=== PATIENT | female | born 1955 | race Hispanic/Latino ===

== ENCOUNTER 2022-02-20 03:42 | Emergency (ER) | payer OTHER ==
[2022-02-20] MEDS ORDERED: SODIUM CHLORIDE 0.9% 1000 ML 1,000 ML IV ONE (04:28)
[2022-02-20 05:01] LABS: Basophils % (Auto) 0.5 % (0.0-1.8); Eosinophils # (Auto) 0.2 K/mm3 (0.0-0.4); Eosinophils % (Auto) 2.2 % (0.0-4.3); Hematocrit 32.9 % (30.3-42.9); Hemoglobin 10.6 gm/dl (10.1-14.3); Lymphocytes # (Auto) 0.9 K/mm3 (1.2-5.4); Lymphocytes % (Auto) 13.6 % (13.4-35.0); Mean Corpuscular HGB Conc 32 % (30-34); Mean Corpuscular Volume 88 fl (79-97); Monocytes # (Auto) 0.5 K/mm3 (0.0-0.8); Monocytes % (Auto) 7.1 % (0.0-7.3); Platelet Count 272 K/mm3 (140-440); Red Blood Count 3.75 M/mm3 (3.65-5.03); Red Cell Distribution Width 13.6 % (13.2-15.2)
--- NOTE | 2022-02-20 05:05 | XRay Report ---
XR chest 1V ap INDICATION / CLINICAL INFORMATION: syncope. COMPARISON: None available. FINDINGS: SUPPORT DEVICES: None. HEART /PULMONARY VASCULATURE: No significant abnormality. LUNGS / PLEURA: No significant pulmonary or pleural abnormality. No pneumothorax. ADDITIONAL FINDINGS: No significant additional findings. IMPRESSION: 1. No acute findings. Signer Name: Constantino Patton MD Signed: 02/20/2022 5:00 AM Workstation Name: [email or web address]
[2022-02-20 05:11] LABS: Bilirubin,Urine NEG (Negative); Blood,Urine SM (Negative); Color,Urine Yellow (Yellow); Mucus,Urine 2+ /HPF; Urobilinogen,Urine < 2.0 mg/dL (<2.0)
[2022-02-20 05:17] LABS: Albumin 3.5 g/dL (3.9-5); Calcium 9.2 mg/dL (8.4-10.2)
[2022-02-20 05:25] VITALS: BP 106/66
--- NOTE | 2022-02-20 05:37 | Emergency Department Report ---
ED General Adult HPI - General Chief complaint: Weakness Stated complaint: DEHYDRATION Time Seen by Provider: 02/20/22 04:24 Source: patient, family, EMS Mode of arrival: Stretcher Limitations: Physical Limitation - History of Present Illness Initial comments: Patient presents with complaints of an episode of loss of consciousness that was witnessed by her daughter, who is at the bedside giving collateral history. Per daughter, it lasted for less than a minute and was without convulsive jerking, bowel/urinary incontinence, tongue or lip biting. Patient denies any dizziness, numbness, weakness, PEÑALOZA, CP, SOB, palpitations before or after the episode. Also denies any vomiting, diarrhea, hematochezia, bloody or black tarry stools, vaginal bleeding. - Related Data Allergies Allergy/AdvReac Type Severity Reaction Status Date / Time codeine Allergy Hives Verified 02/20/22 05:17 ED Review of Systems ROS: Stated complaint: DEHYDRATION Other details as noted in HPI Comment: All other systems reviewed and negative Constitutional: denies: chills, fever ED Past Medical Hx - Past Medical History Previous Medical History?: Yes Hx Hypertension: Yes Hx CVA: Yes - Surgical History Past Surgical History?: Yes Additional Surgical History: Hysterectomy - Social History Smoking Status: Never Smoker Substance Use Type: None ED Physical Exam - General Limitations: Physical Limitation General appearance: alert, in no apparent distress - Head Head exam: Present: atraumatic, normocephalic - Eye Eye exam: Present: PERRL, EOMI - ENT ENT exam: Present: mucous membranes moist, other (airway patent) - Neck Neck exam: Present: other (supple; no JVD) - Respiratory Respiratory exam: Present: other (good air entry, nml I:E, CTAB, no use of RASHIDA) - Cardiovascular Cardiovascular Exam: Present: regular rate. Absent: rubs, gallop - GI/Abdominal GI/Abdominal exam: Present: soft, normal bowel sounds. Absent: distended, tenderness - Extremities Exam Extremities exam: Present: other (no lower extremity edema; non tender calves; ne gHoman's sign bilaterally) - Back Exam Back exam: Present: full ROM. Absent: tenderness - Neurological Exam Neurological exam: Present: alert, oriented X3, CN II-XII intact, other (GCS 15/15). Absent: motor sensory deficit - Skin Skin exam: Present: warm, normal color ED Course Vital Signs 02/20/22 02/20/22 02/20/22 04:31 04:46 04:49 Temperature 98.2 F Pulse Rate 93 H 101 H 102 H Respiratory 19 18 Rate Blood Pressure 120/59 108/98 O2 Sat by Pulse 99 98 Oximetry 02/20/22 02/20/22 02/20/22 05:00 05:16 07:37 Temperature Pulse Rate 87 96 H Respiratory 16 12 Rate Blood Pressure 120/59 106/66 O2 Sat by Pulse 100 100 99 Oximetry ED Medical Decision Making - Lab Data Result diagrams: 02/20/22 04:35 02/20/22 04:35 Laboratory Tests 02/20/22 02/20/22 02/20/22 04:35 04:35 04:35 WBC 6.9 RBC 3.75 Hgb 10.6 Hct 32.9 MCV 88 MCH 28 MCHC 32 RDW 13.6 Plt Count 272 Lymph % (Auto) 13.6 [place] % (Auto) 7.1 Eos % (Auto) 2.2 Baso % (Auto) 0.5 Lymph # (Auto) 0.9 L [place] # (Auto) 0.5 Eos # (Auto) 0.2 Baso # (Auto) 0.0 Seg Neutrophils % 76.6 H Seg Neutrophils # 5.3 Sodium 137 Potassium 4.2 Chloride 102.8 Carbon Dioxide 24 Anion Gap 14 BUN 14 Creatinine 1.0 Estimated GFR 56 BUN/Creatinine Ratio 14 Glucose 116 H Calcium 9.2 Total Bilirubin 0.20 AST 19 ALT 19 Alkaline Phosphatase 61 Total Creatine Kinase Troponin T < 0.010 Total Protein 6.5 Albumin 3.5 L Albumin/Globulin Ratio 1.2 Urine Color Urine Turbidity Urine pH Ur Specific [place] Urine Protein Urine Glucose (UA) Urine Ketones Urine Blood Urine Nitrite Urine Bilirubin Urine Urobilinogen Ur Leukocyte Esterase Urine WBC (Auto) Urine RBC (Auto) U Epithel Cells (Auto) Urine Mucus 02/20/22 02/20/22 04:35 04:46 WBC RBC Hgb Hct MCV MCH MCHC RDW Plt Count Lymph % (Auto) [place] % (Auto) Eos % (Auto) Baso % (Auto) Lymph # (Auto) [place] # (Auto) Eos # (Auto) Baso # (Auto) Seg Neutrophils % Seg Neutrophils # Sodium Potassium Chloride Carbon Dioxide Anion Gap BUN Creatinine Estimated GFR BUN/Creatinine Ratio Glucose Calcium Total Bilirubin AST ALT Alkaline Phosphatase Total Creatine Kinase 52 Troponin T Total Protein Albumin Albumin/Globulin Ratio Urine Color Yellow Urine Turbidity Clear Urine pH 5.0 Ur Specific [place] 1.021 Urine Protein 30 mg/dl Urine Glucose (UA) Neg Urine Ketones Neg Urine Blood Sm Urine Nitrite Pos Urine Bilirubin Neg Urine Urobilinogen < 2.0 Ur Leukocyte Esterase Mod Urine WBC (Auto) 23.0 H Urine RBC (Auto) 2.0 U Epithel Cells (Auto) 2.0 Urine Mucus 2+ CT head: intracranial mass with hemorrhage and small SAH CXR: no acute cardiopulmonary process EKG: HR 90, SR, nml intervals, no significant ST changes in contiguous leads - Medical Decision Making Dr. Sheth (Neurosurgery)/dr. Monge (Neurocritical care) @ [place] called. They accepted patient in transfer. Critical care attestation.: If time is entered above; I have spent that time in minutes in the direct care of this critically ill patient, excluding procedure time. ED Disposition Clinical Impression: Intracranial mass, Intracranial hemorrhage Disposition: 02 SHORT TERM HOSPITAL Is pt being admited?: No Does the pt Need Aspirin: No Condition: Stable Time of Disposition: 06:13 (Patient transferred to Dr. Monge @ [place]. Sign out was given by me to her)
--- NOTE | 2022-02-20 05:57 | Cat Scan Report ---
CT HEAD WITHOUT CONTRAST INDICATION / CLINICAL INFORMATION: AMS. TECHNIQUE: All CT scans at this location are performed using CT dose reduction for ALARA by means of automated exposure control. COMPARISON: None available. FINDINGS: BRAIN PARENCHYMA/INTRACRANIAL STRUCTURES: Masslike structure within the right frontal lobe measures 5 .0 x 2.8 cm transaxially and up to 4.9 cm and craniocaudal dimension. Hyperattenuation along the supe rior margin of the structure is favored to reflect internal hemorrhage. There is a small focus of hyp erattenuation along the inferior right frontal lobe, suspicious for subarachnoid hemorrhage. No signi ficant midline shift. Moderate chronic small vessel ischemic changes. ORBITS: Normal as visualized. SKELETAL SYSTEM/SOFT TISSUES: Normal bones and soft tissues. PARANASAL SINUSES/MASTOID AIR CELLS: No significant abnormality. ADDITIONAL FINDINGS: None. IMPRESSION: 1. Masslike structure within the right frontal lobe with internal hemorrhage and small focus of proba ble subarachnoid hemorrhage along the inferior right frontal lobe. Recommend further evaluation with MRI. Findings were discussed with CLARA BAIRES MD by phone on 02/20/2022 at 4:52 AM Signer Name: Constantino Patton MD Signed: 02/20/2022 5:53 AM Workstation Name: [email or web address]
[2022-02-20 07:45] LABS: INR 1.08 (0.87-1.13)
[2022-02-20 07:46] LABS: Partial Thromboplastin Time 25.8 Sec. (24.2-36.6)
--- NOTE | 2022-02-21 12:10 | Electrocardiograph Report ---
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
== END 2022-02-20 08:51 | disposition short-term general hospital (02) ==
LOC: ED 03:42
DX: I62.9 Nontraumatic intracranial hemorrhage, unspecified (principal); G93.0 Cerebral cysts; I10 Essential (primary) hypertension; Z86.73 Personal history of transient ischemic attack (TIA), and cerebral infarction without residual deficits; Z90.710 Acquired absence of both cervix and uterus; Z88.5 Allergy status to narcotic agent
CPT/HCPCS: 36415; 70450; 71045; 80053; 81001; 82550; 84484; 85025; 85610; 85730; 87086; 93005; 96360; 99285; J7030